=== PATIENT | female | born 1980 | race Caucasian/White ===

== ENCOUNTER 2017-04-07 09:52 | Emergency (ER) | payer OTHER, MEDICAID ==
[~2017-04-07] VITALS: Ht 154.9 cm; Wt 54.0 kg
[2017-04-07] MEDS ORDERED: ONDANSETRON HCL 4MG/2ML VIAL IV STA (10:23)
[2017-04-07] MEDS ORDERED: SODIUM CHLORIDE 0.9% 1,000 ML IV ONE (10:23)
[2017-04-07] MEDS ORDERED: METHYLPREDNISOLONE SOD SUCC 40 MG/ML VIAL IV ONE (10:30)
[2017-04-07 10:46] LABS: HEMATOCRIT. 46.6 % (36.0-48.0); HEMOGLOBIN. 15.7 g/dL (12.0-16.0); MEAN CORPUSCULAR VOLUME 83.2 fL (81.0-99.0); MEAN PLATELET VOLUME 10.2 fl (7.4-10.4); PLATELET 281 x1000/uL (130-400); RED CELL DISTRIBUTION WIDTH 14.8 % (11.6-14.6)
[2017-04-07 10:54] LABS: HCG SCREEN NEGATIVE
[2017-04-07 11:02] LABS: CARBON DIOXIDE 20 mEq/L (21-32); CHLORIDE 95 mEq/L (98-107)
[2017-04-07 11:41] LABS: PLATELET ESTIMATE NORMAL
[2017-04-07] MEDS ORDERED: SODIUM CHLORIDE 0.9% 1000ML BAG (SEPSIS BOLUS) IV ONE (12:15)
[2017-04-07] MEDS ORDERED: INSULIN REGULAR (HUMULIN R) 300UNITS/3ML SUBCUT ONE (12:15)
[2017-04-07 13:34] VITALS: BP 127/63
== END 2017-04-07 14:00 | disposition home or self-care (01) ==
LOC: ER 10:47
DX: T78.40XA Allergy, unspecified, initial encounter (principal); R11.10 Vomiting, unspecified; F17.200 Nicotine dependence, unspecified, uncomplicated; J45.909 Unspecified asthma, uncomplicated; E11.9 Type 2 diabetes mellitus without complications; Y92.89 Other specified places as the place of occurrence of the external cause
CPT/HCPCS: 36415; 80053; 82962; 83690; 84703; 85025; 96361; 96372; 96374; 96375; 99284; J1815; J2405; J2920; J7030